=== PATIENT | female | born 1965 | race American Indian/Alaskan Native ===

== ENCOUNTER 2017-01-22 06:03 | Day surgery (SDC) | payer OTHER ==
[2016-05-22 16:22] VITALS: BMI 22.8
[2017-01-22] MEDS ORDERED: Bupivacaine 0.5% Inj(30mL) ONE (08:09)
[2017-01-22] MEDS ORDERED: Succinylcholine 200 mg/10 ml Inj IV ONE (09:25)
[2017-01-22] MEDS ORDERED: Midazolam 2 MG/2 ML VIAL ONE (09:25)
[2017-01-22] MEDS ORDERED: Propofol 10 mg/ml Inj (20 ML) ONE (09:25)
[2017-01-22] MEDS ORDERED: ePHEDrine 50 mg/ml Inj ONE (09:34)
[2017-01-22] MEDS ORDERED: Phenylephrine 10 mg/ml Inj ONE (09:34)
[2017-01-22] MEDS ORDERED: Neostigmine Methylsulfate 3mg/3ml Syringe IV ONE ×2 (10:08→10:27)
[2017-01-22] MEDS ORDERED: HYDROmorphone 0.5 mg/0.5 ml ISec IVP PRN (10:48)
--- NOTE | 2017-01-22 10:52 | PCM.SURG1 ---
Surgeon's Initial Post Op Note - Surgeon's Notes Surgeon: Dr. Louis Botany Professor: Dr. Conner PGY-2, Dr. Paula PGY-1 Type of Anesthesia: General Endo Anesthesia Administered By: Dr. Bach Pre-Operative Diagnosis: Ventral Hernia Operative Findings: See operative report Post-Operative Diagnosis: Same Operation Performed: Open ventral hernia repair Specimen/Specimens Removed: sac lipoma Estimated Blood Loss: EBL {In ML}: 5 Blood Products Given: N/A Drains Used: No Drains Post-Op Condition: Good Date of Surgery/Procedure: 01/22/17 Time of Surgery/Procedure: 10:52
[2017-01-22] MEDS ORDERED: Oxycodone/Acetaminophen 5/325 mg Tab PO PRN (10:54)
[2017-01-22] MEDS ORDERED: Lactated Ringer's 1,000 ML IV SCH (11:00)
[2017-01-22 11:14] VITALS: O2SAT 100
[2017-01-22 12:00] VITALS: RESP 18; TEMP 97.7
[2017-01-22 12:29] VITALS: BP 120/81; PULSE 78
--- NOTE | 2017-01-30 07:37 | OP ---
PROCEDURE DATE: 01/22/2017 PREOPERATIVE DIAGNOSIS: Ventral umbilical hernia. POSTOPERATIVE DIAGNOSIS: Ventral umbilical hernia. OPERATION PERFORMED: Excision of the hernia and repair. DESCRIPTION OF PROCEDURE: In the operating room, the patient was identified by name, number, procedu re, laterality, my ton, the consent. The area was a small periumbilical ventral-type hernia in the site of an old scar. This was dissected down to the skin. Once the timeout was successfully complet ed, the area was injected with Marcaine, and the dissection was taken down to the fascia. A very sma ll ventral hernia was identified. This was circumferentially dissected and pushed back. The incision was closed with mattress stitches of #1 Novafil. These were placed. The area was then palpated, and these were pulled up and tied serially. The wounds were injected with Marcaine, subcut icular stitches of Vicryl followed by 4-0 PDS subcuticular stitch. A light dressing was applied. Th e patient taken to recovery room in good condition after sponge count was declared correct. Barney Louis MD cc: [id number] TT: 01/29/2017 15:01:57 jn
== END 2017-01-22 12:45 | disposition home or self-care (01) ==
LOC: SDS 06:03
PROVIDERS: ATTEND Surgery
DX: K43.9 Ventral hernia without obstruction or gangrene (principal); I10 Essential (primary) hypertension; F41.9 Anxiety disorder, unspecified
CPT/HCPCS: 49560; 88302; J0330; J0690; J1100; J1170; J2001; J2250; J2370; J2405; J2704; J2710; J3010; J7040; J7120 ×2

== ENCOUNTER 2017-10-25 18:49 | Emergency (ER) | payer OTHER ==
[2017-10-25 19:00] VITALS: BP 137/65; PULSE 108; RESP 18; TEMP 99.4; O2SAT 98; BMI 23.4
--- NOTE | 2017-10-25 19:13 | ED PDOC ---
Arrival/HPI <Wilmer Menjivar - Last Filed: 10/25/17 20:45> - General Historian: Patient - History of Present Illness Time/Duration: Other (see hpi) Context: Home <More Escalera - Last Filed: 10/25/17 21:26> - General Chief Complaint: Flu-like Symptoms Time Seen by Provider: 10/25/17 19:09 - History of Present Illness Narrative History of Present Illness (Text): 10/25/17 19:12 A 52 year old female, whose past medical history includes Total abdominal hysterectomy and x3, presents to the emergency room complaining of nasal congestion x 2 days. Patient she developed body aches, sore throat and fever since this morning. Patient denies cp, wheezing, urinary symptoms, abdominal pain, dizziness, leg swelling, calf pain, recent travel, sick contact , or abnormal gait. Patient admits smoking cigarettes daily. (More Escalera) Past Medical History - Provider Review Nursing Documentation Reviewed: Yes - Infectious Disease Hx of Infectious Diseases: None - Tetanus Immunization Tetanus Immunization: Unknown - Reproductive Menopause: No - Past Medical History Past Medical History: No Previous - Cardiac Hx Pacemaker: No - Pulmonary Hx Respiratory Disorders: No - Neurological Hx Paralysis: No - HEENT Hx HEENT Disorder: No - Renal Hx Renal Disorder: No - Endocrine/Metabolic Hx Endocrine Disorders: No - Hematological/Oncological Hx Blood Transfusions: Yes (1980) Hx Blood Transfusion Reaction: No - Integumentary Hx Dermatological Disorder: No - Musculoskeletal/Rheumatological Hx Musculoskeletal Disorders: No - Gastrointestinal Hx Gastrointestinal Disorders: Yes Hx Constipation: Yes Other/Comment: unspecified stomach problem - Genitourinary/Gynecological Hx Genitourinary Disorders: Yes Hx Uterine Cancer: Yes (fibroid) - Psychiatric Hx Emotional Abuse: No Hx Physical Abuse: No Hx Substance Use: No - Past Surgical History Past Surgical History: No Previous - Surgical History Hx Section: Yes Hx Hysterectomy: Yes - Anesthesia Hx Anesthesia Reactions: No Hx Malignant Hyperthermia: No - Suicidal Assessment Feels Threatened In Home Enviroment: No <More Escalera - Last Filed: 10/25/17 21:26> Family/Social History - Physician Review Nursing Documentation Reviewed: Yes Family/Social History: Other (noncontributory) Smoking Status: Light Smoker < 10 Cigarettes Daily Hx Alcohol Use: Yes (SOCIAL) Frequency of alcohol use: Socially Hx Substance Use: No Hx Substance Use Treatment: No <More Escalera Melina - Last Filed: 10/25/17 21:26> Allergies/Home Meds <Wilmer Menjivar - Last Filed: 10/25/17 20:45> <More Escalera P - Last Filed: 10/25/17 21:26> Allergies/Adverse Reactions: Allergies Penicillins Allergy (Verified 10/25/17 19:00) RASH tomato Allergy (Verified 10/25/17 19:00) RASH Home Medications: Home Meds Medication Instructions Recorded Confirmed Lubiprostone [Amitiza] 1 tab PO BID 05/22/16 10/25/17 Acetaminophen/Diphenhydramine 1 tab PO HS 01/02/17 10/25/17 [Tylenol Pm Ex-Strength Caplet] Alprazolam [Xanax] 0.5 mg PO BID 01/02/17 10/25/17 Esomeprazole Magnesium [Nexium] 40 mg PO DAILY 01/02/17 10/25/17 oxyCODONE/Acetaminophen [Percocet 1 tab PO Q6H PRN 01/22/17 10/25/17 5/325 mg Tab] Review of Systems - Review of Systems Constitutional: absent: Fatigue, Weight Change, Fevers, Night Sweats Eyes: Normal ENT: Sore Throat, Rhinorrhea Respiratory: Normal. absent: SOB, Cough Cardiovascular: Normal. absent: Chest Pain, Palpitations Gastrointestinal: Normal. absent: Abdominal Pain, Nausea, Vomiting Genitourinary Female: Normal. absent: Dysuria, Frequency, Hematuria Musculoskeletal: Myalgias. absent: Back Pain, Neck Pain Skin: Normal. absent: Rash Neurological: Normal. absent: Headache, Dizziness, Focal Weakness, Gait Changes , Speech Changes, Facial Droop, Disequilibrium, Seizure Endocrine: Normal Hemo/Lymphatic: Normal Psychiatric: Normal <More Escalera P - Last Filed: 10/25/17 21:26> Physical Exam Temperature: Afebrile Blood Pressure: Normal Pulse: Tachycardic Respiratory Rate: Normal Appearance: Positive for: Well-Appearing, Non-Toxic, Comfortable Pain Distress: None Mental Status: Positive for: Alert and Oriented X 3 - Systems Exam Head: Present: Atraumatic, Normocephalic Pupils: Present: PERRL Extroacular Muscles: Present: EOMI Conjunctiva: Present: Normal Mouth: Present: Moist Mucous Membranes Neck: Present: Normal Range of Motion Respiratory/Chest: Present: Clear to Auscultation, Good Air Exchange. No: Respiratory Distress, Accessory Muscle Use, Wheezes, Rales, Retracting, Rhonchi , Tachypneic Cardiovascular: Present: Regular Rate and Rhythm, Normal S1, S2. No: Murmurs Abdomen: Present: Normal Bowel Sounds. No: Tenderness, Distention, Peritoneal Signs Back: Present: Normal Inspection. No: CVA Tenderness Upper Extremity: Present: Normal Inspection. No: Cyanosis, Edema Lower Extremity: Present: Normal Inspection. No: Edema Neurological: Present: GCS=15, CN II-XII Intact, Speech Normal, Motor Func Grossly Intact, Normal Sensory Function, Normal Cerebellar Funct Skin: Present: Warm, Dry, Normal Color. No: Rashes Psychiatric: Present: Alert, Oriented x 3, Normal Insight, Normal Concentration <More Escalera - Last Filed: 10/25/17 21:26> Vital Signs Temp Pulse Resp BP Pulse Ox 10/25/17 18:55 99.4 F 108 H 18 137/65 98 Medical Decision Making <Wilmer Menjivar - Last Filed: 10/25/17 20:45> Re-evaluation Time: 21:02 Reassessment Condition: Re-examined, Improved - Lab Interpretations I have reviewed the lab results: Yes Interpretation: No clinic. lab abnormalty <More Escalera - Last Filed: 10/25/17 21:26> ED Course and Treatment: 10/25/17 21:01 Patient is feeling better. She was recommended to f/u pmd in 1-2 days. Take medication as instructed. Return to emergency if symptoms worsen. Re-evaluation. Patient feels better. Discussed results and plan with patient who expresses understanding. All questions answered and there is agreement with the plan to discharge home with instructions. Patient stable for discharge. Return if symptoms persist or worsen. (More Escalera P) - Lab Interpretations Lab Results: Lab Results 10/25/17 19:30: Influenza Typ A,B (EIA) Negative for flu a/b - RAD Interpretation Radiology Orders: 10/25/17 19:26 CHEST TWO VIEWS (PA/LAT) [RAD] Stat - Medication Orders Current Medication Orders: Discontinued Medications Azithromycin (Zithromax) 500 mg PO STAT STA PRN Reason: Protocol Stop: 10/25/17 21:01 Promethazine HCl/Codeine (Phenergan/Codeine Oral Syrup) 10 ml PO STAT STA Stop: 10/25/17 21:01 - PA / CVIR TECH / Resident Statement / has reviewed & agrees with the documentation as recorded. / has examined the patient and agrees with the treatment plan. <Wilmer Menjivar - Last Filed: 10/25/17 20:45> Disposition/Present on Arrival <Wilmer Menjivar - Last Filed: 10/25/17 20:45> - Present on Arrival Any Indicators Present on Arrival: No History of DVT/PE: No History of Uncontrolled Diabetes: No Urinary Catheter: No History of Decub. Ulcer: No History Surgical Site Infection Following: None - Disposition Have Diagnosis and Disposition been Completed?: Yes Disposition Time: 21:02 Patient Plan: Discharge <More Escalera - Last Filed: 10/25/17 21:26> - Disposition Diagnosis: Acute bronchitis Disposition: HOME/ ROUTINE Patient Problems: Current Active Problems Problem Status Onset Acute bronchitis Acute Condition: STABLE Discharge Instructions (ExitCare): Acute Bronchitis (ED) Additional Instructions: Call private doctor for follow up visit in 1-2 days. Take medication as instructed. Return to emergency if symptoms worsen. Do not drive or operate machinery for at least 8 hours when you take cough medication. Prescriptions: Azithromycin [Z-David] 250 mg PO DAILY #4 tab Promethazine/Codeine [Codeine/Promethazine 10 MG/5 Ml-6.25 MG/5 Ml] 5 ml PO Q4H PRN #120 ml PRN Reason: Cough Referrals: Silver Mclean MD [Primary Care Provider] - Follow up with primary Forms: [employer] ([place]), WORK NOTE
[2017-10-25] MEDS ORDERED: Promethazine/Cod 6.25mg-10mg/5ml Syr UD PO STA (21:00)
--- NOTE | 2017-10-26 09:02 | RAD ---
HISTORY: COMPARISON: 12/25/2016 TECHNIQUE: Chest PA and lateral FINDINGS: LINES AND TUBES: None. LUNG AND PLEURA: The lungs are hyperinflated and there is peribronchial thickening with chronic changes in both lungs. No focal consolidation HEART AND MEDIASTINUM: The heart is not enlarged. The hilar and mediastinal contours are within normal limits. SKELETAL STRUCTURES: The bony structures are within normal limits for the patient's age. VISUALIZED UPPER ABDOMEN: Normal. OTHER FINDINGS: None. IMPRESSION: No active pulmonary disease. COPD.
== END 2017-10-25 22:15 | disposition home or self-care (01) ==
LOC: ED 18:49
DX: J20.9 Acute bronchitis, unspecified (principal); F17.210 Nicotine dependence, cigarettes, uncomplicated

== ENCOUNTER 2018-10-09 20:46 | Emergency (ER) | payer OTHER ==
[2018-10-09 21:29] VITALS: RESP 18; TEMP 98.2; BMI 25.6
--- NOTE | 2018-10-09 22:41 | ED PDOC ---
Arrival/HPI - General Chief Complaint: Dental Pain Time Seen by Provider: 10/09/18 20:46 Historian: Patient - History of Present Illness Narrative History of Present Illness (Text): 10/09/18 22:37 53 year old female with no significant past medical history, presents to the emergency department complaining of left bottom wisdom tooth removal pain. Patient reports she had her left bottom wisdom tooth removed and despite taking Tylenol and clindamycin, patient still is having pain. Patient also states she works here and since Thursday she's also been having a cough, runny nose, fever, and chills, but denies any chest pain, shortness of breath, nausea, vomiting, diarrhea, headache, dizziness, rash, or any other complaints. Time/Duration: Other (1-2 days) Symptom Onset: Gradual Symptom Course: Unchanged Activities at Onset: Light Context: Home Past Medical History - Provider Review Nursing Documentation Reviewed: Yes - Infectious Disease Hx of Infectious Diseases: None - Tetanus Immunization Tetanus Immunization: Unknown - Past Medical History Past Medical History: No Previous - Cardiac Hx Pacemaker: No - Pulmonary Hx Respiratory Disorders: No - Neurological Hx Paralysis: No - HEENT Hx HEENT Disorder: No - Renal Hx Renal Disorder: No - Endocrine/Metabolic Hx Endocrine Disorders: No - Hematological/Oncological Hx Blood Transfusions: Yes (1980) Hx Blood Transfusion Reaction: No - Integumentary Hx Dermatological Disorder: No - Musculoskeletal/Rheumatological Hx Musculoskeletal Disorders: No - Gastrointestinal Hx Gastrointestinal Disorders: Yes Hx Constipation: Yes Other/Comment: unspecified stomach problem - Genitourinary/Gynecological Hx Genitourinary Disorders: Yes Hx Uterine Cancer: Yes (fibroid) - Psychiatric Hx Emotional Abuse: No Hx Physical Abuse: No Hx Substance Use: No - Past Surgical History Past Surgical History: No Previous - Surgical History Hx Section: Yes Hx Hysterectomy: Yes - Anesthesia Hx Anesthesia Reactions: No Hx Malignant Hyperthermia: No - Suicidal Assessment Feels Threatened In Home Enviroment: No Family/Social History - Physician Review Nursing Documentation Reviewed: Yes Family/Social History: No Known Family HX Smoking Status: Light Smoker < 10 Cigarettes Daily Hx Alcohol Use: Yes (SOCIAL) Hx Substance Use: No Hx Substance Use Treatment: No Allergies/Home Meds Allergies/Adverse Reactions: Allergies Penicillins Allergy (Verified 10/25/17 19:00) RASH tomato Allergy (Verified 10/25/17 19:00) RASH Home Medications: Home Meds Medication Instructions Recorded Confirmed Lubiprostone [Amitiza] 1 tab PO BID 05/22/16 10/25/17 Acetaminophen/Diphenhydramine 1 tab PO HS 01/02/17 10/25/17 [Tylenol Pm Ex-Strength Caplet] Alprazolam [Xanax] 0.5 mg PO BID 01/02/17 10/25/17 Esomeprazole Magnesium [Nexium] 40 mg PO DAILY 01/02/17 10/25/17 oxyCODONE/Acetaminophen [Percocet 1 tab PO Q6H PRN 01/22/17 10/25/17 5/325 mg Tab] Review of Systems - Physician Review All systems were reviewed & negative as marked: Yes - Review of Systems Constitutional: Fevers, Other (Chills) ENT: Rhinorrhea, Other (left wisdom tooth removal pain) Respiratory: Cough. absent: SOB Cardiovascular: absent: Chest Pain Gastrointestinal: absent: Diarrhea, Nausea, Vomiting Skin: absent: Rash Neurological: absent: Headache, Dizziness Physical Exam Vital Signs Reviewed: Yes Vital Signs Temp Pulse Resp BP Pulse Ox 10/09/18 20:46 98.2 F 92 H 18 121/81 99 Temperature: Afebrile Blood Pressure: Normal Pulse: Regular Respiratory Rate: Normal Appearance: Positive for: Well-Appearing, Non-Toxic, Comfortable Pain Distress: None Mental Status: Positive for: Alert and Oriented X 3 - Systems Exam Head: Present: Atraumatic, Normocephalic, Swelling (Mild swelling to the left mandible) Pupils: Present: PERRL Extroacular Muscles: Present: EOMI Conjunctiva: Present: Normal Mouth: Present: Moist Mucous Membranes, Other (Mild tenderness to area of dental extraction. No swelling to the gums. ) Neck: Present: Normal Range of Motion Respiratory/Chest: Present: Clear to Auscultation, Good Air Exchange. No: Respiratory Distress, Accessory Muscle Use Cardiovascular: Present: Regular Rate and Rhythm, Normal S1, S2. No: Murmurs Neurological: Present: GCS=15, CN II-XII Intact, Speech Normal Skin: Present: Warm, Dry, Normal Color. No: Rashes Psychiatric: Present: Alert, Oriented x 3, Normal Insight, Normal Concentration Medical Decision Making ED Course and Treatment: 10/09/18 22:37 Impression: 53 year old female presents complaining left bottom wisdom tooth removal pain for the past 2 days and also complaining of cough, runny nose, fever, and chills that began yesterday. Plan: -- Chest X-ray -- Douneb, Ultram -- Reassess and disposition Progress Notes: Flu : (-) CXR : NAD On reevaluation, patient reports pain is improving. Diagnostic results discussed with the patient. On exam, patient remains awake alert and oriented 3 in no acute distress. Advised to follow up with primary care physician and dentist in 1-2 days without fail. Advised to take medication as prescribed. Return to the emergency room at any time for any new or worsening symptoms. Patient states she fully agrees with and understands discharge instructions. States that she agrees with the plan and disposition. Verbalized and repeated discharge instructions and plan. I have given the patient opportunity to ask any additional questions. - Lab Interpretations Lab Results: Lab Results 10/09/18 22:00: Influenza Typ A,B (EIA) Negative for flu a/b - RAD Interpretation Radiology Orders: 10/09/18 21:47 CHEST TWO VIEWS (PA/LAT) [RAD] Stat - Medication Orders Current Medication Orders: Discontinued Medications Tramadol HCl (Ultram) 50 mg PO STAT STA Stop: 10/09/18 21:48 Last Admin: 10/09/18 21:57 Dose: 50 mg ANDRES Pain Assessment Document 10/09/18 21:57 JOL (Rec: 10/09/18 21:57 JOL [facility] [id number]) Pain Reassessment Is this a pain reassessment? No Sleep Is patient sleeping during reassessment? No Presence of Pain Presence of Pain Yes Pain Scale Used Protocol: PSCALES Pain Scale Used Numeric Location Pain Location Body Site Face Description Intensity of Pain at present 6 - PA / DIRECTOR OF PLACEMENT / Resident Statement MD/ has reviewed & agrees with the documentation as recorded. - Scribe Statement The provider has reviewed the documentation as recorded by the Carla Messina Provider Scribe Attestation: All medical record entries made by the Tazibamol were at my direction and personally dictated by me. I have reviewed the chart and agree that the record accurately reflects my personal performance of the history, physical exam, medical decision making, and the department course for this patient. I have also personally directed, reviewed, and agree with the discharge instructions and disposition. Disposition/Present on Arrival - Present on Arrival Any Indicators Present on Arrival: No History of DVT/PE: No History of Uncontrolled Diabetes: No Urinary Catheter: No History of Decub. Ulcer: No History Surgical Site Infection Following: None - Disposition Have Diagnosis and Disposition been Completed?: Yes Diagnosis: Toothache, Acute bronchitis Disposition: HOME/ ROUTINE Disposition Time: 22:45 Patient Plan: Discharge Patient Problems: Current Active Problems Problem Status Onset Toothache Acute Acute bronchitis Acute Condition: STABLE Discharge Instructions (ExitCare): Acute Bronchitis, Adult (DC), Dental Pain (DC) Additional Instructions: Thank you for letting us take care of you today. You were treated for toothache, acute bronchitis. The emergency medical care you received today was directed at your acute symptoms. If you were prescribed any medication, please fill it and take as directed. It may take several days for your symptoms to resolve. Return to the Emergency Department if your symptoms worsen, do not improve, or if you have any other problems. Please contact your doctor and her dentist in 2 days for re-evaluation and follow up. Bring any paperwork you were given at discharge with you along with any medications you are taking to your follow up visit. Our treatment cannot replace ongoing medical care by a primary care provider (PCP) outside of the emergency department. Thank you for allowing the [facility] [employer] [facility] team to be part of your care today. If you had an X-Ray : A Radiologist will review the ED reading if any change in treatment is needed we will contact you. Prescriptions: Albuterol 0.083% [Albuterol Sulfate 3 Ml] 3 ml IH Q4 #100 neb Azithromycin [Z-David] 250 mg PO DAILY #6 tab Nebulizer [Aeroeclipse II] 1 each MC DAILY #1 each traMADol [Ultram] 50 mg PO TID PRN #12 tab PRN Reason: Pain, Moderate (4-7) Referrals: FAMILY PROVIDER,NO [Primary Care Provider] - Follow up with primary Forms: [employer] (Filipino), WORK NOTE
[2018-10-09] MEDS ORDERED: Albuterol-Ipratrop 3 mg / 0.5 (3 ml) UD IH STA (22:44)
[2018-10-09] MEDS ORDERED: Albuterol-Ipratrop 3 mg / 0.5 (3 ml) UD ONE (22:51)
[2018-10-09 23:41] VITALS: BP 123/74; PULSE 88; O2SAT 100
--- NOTE | 2018-10-10 09:58 | RAD ---
Date of service: 10/09/2018 HISTORY: cough COMPARISON: Chest radiograph dated 10/25/2017. TECHNIQUE: Chest PA and lateral FINDINGS: LUNGS: No active pulmonary disease. PLEURA: No significant pleural effusion identified. No pneumothorax apparent. CARDIOVASCULAR: Aortic atherosclerotic calcifications. Cardiomediastinal silhouette within normal limits. OSSEOUS STRUCTURES: Unchanged. VISUALIZED UPPER ABDOMEN: Normal. OTHER FINDINGS: None. IMPRESSION: No active disease.
== END 2018-10-09 23:05 | disposition home or self-care (01) ==
LOC: ED 20:46
DX: J20.9 Acute bronchitis, unspecified (principal); K08.89 Other specified disorders of teeth and supporting structures; F17.210 Nicotine dependence, cigarettes, uncomplicated

== ENCOUNTER 2019-03-11 20:19 | Emergency (ER) | payer OTHER ==
[2019-03-11 20:20] VITALS: BMI 25.6
[2019-03-11 20:24] VITALS: RESP 18
[2019-03-11 20:44] VITALS: TEMP 98
[2019-03-11] MEDS ORDERED: Sodium Chloride 0.9% 1,000 ML IV ONE (20:49)
[2019-03-11 21:19] LABS: BASO # 0.02 K/mm3 (0.0-2.0); BASO % 0.2 % (0.0-3.0); EOS # 0.1 (0.0-0.7); EOS % 1.2 % (1.5-5.0); HEMOGLOBIN 13.5 g/dL (12.0-16.0); LYMPH # 4.1 (1.2-3.4); LYMPH % 49.5 % (22.0-35.0); MEAN CELL VOLUME 99.5 fl (80.0-105.0); MEAN CORPUSCULAR HEMOGLOBIN 33.1 pg (25.0-35.0); MEAN CORPUSCULAR HGB CONC 33.3 g/dl (31.0-37.0); MEAN PLATELET VOLUME 9.4 fl (7.0-11.0); MONO # 0.5 (0.1-0.6); MONO % 6.5 % (1.0-6.0); RBC 4.08 10^6/uL (3.5-6.1); RED CELL DISTRIBUTION WIDTH 13.3 % (11.5-14.5); WHITE BLOOD COUNT 8.3 10^3/uL (4.5-11.0)
[2019-03-11 21:38] LABS: ALB/GLOB RATIO 1.4 (1.1-1.8); ALBUMIN 4.6 g/dL (3.0-4.8); ALT/SGPT 11 U/L (7-56); AST/SGOT 26 U/L (14-36); BLOOD UREA NITROGEN 10 mg/dL (7-21); CALCIUM 9.9 mg/dL (8.4-10.5); GFR NON-AFRICAN AMERICAN > 60
[2019-03-11 21:39] LABS: TROPONIN I < 0.01 ng/mL
[2019-03-11 22:36] VITALS: BP 131/79; PULSE 98; O2SAT 98
--- NOTE | 2019-03-11 22:36 | ED PDOC ---
Arrival/HPI - General Chief Complaint: Shortness Of Breath Time Seen by Provider: 03/11/19 20:23 Historian: Patient - History of Present Illness Narrative History of Present Illness (Text): 03/11/19 20:20 53 year old female with no significant past medial history, presents to the emergency department complaining of feeling nauseous and anxious associated with dry cough for the past few days. Patient denies any fever, chills, chest pain, shortness of breath, vomiting, diarrhea, urinary symptoms, back pain, neck pain, headache, dizziness, or any other complaints. PMD: Dr. Mclean Time/Duration: Other (couple days) Symptom Onset: Gradual Symptom Course: Unchanged Activities at Onset: Light Context: Home Past Medical History - Provider Review Nursing Documentation Reviewed: Yes - Infectious Disease Hx of Infectious Diseases: None - Tetanus Immunization Tetanus Immunization: Unknown - Past Medical History Past Medical History: No Previous - Cardiac Hx Pacemaker: No - Pulmonary Hx Respiratory Disorders: No - Neurological Hx Paralysis: No - HEENT Hx HEENT Disorder: No - Renal Hx Renal Disorder: No - Endocrine/Metabolic Hx Endocrine Disorders: No - Hematological/Oncological Hx Blood Transfusions: Yes (1980) Hx Blood Transfusion Reaction: No - Integumentary Hx Dermatological Disorder: No - Musculoskeletal/Rheumatological Hx Musculoskeletal Disorders: No - Gastrointestinal Hx Gastrointestinal Disorders: Yes Hx Constipation: Yes Other/Comment: unspecified stomach problem - Genitourinary/Gynecological Hx Genitourinary Disorders: Yes Hx Uterine Cancer: Yes (fibroid) - Psychiatric Hx Emotional Abuse: No Hx Physical Abuse: No Hx Substance Use: No - Past Surgical History Past Surgical History: No Previous - Surgical History Hx Section: Yes Hx Hysterectomy: Yes - Anesthesia Hx Anesthesia Reactions: No Hx Malignant Hyperthermia: No - Suicidal Assessment Feels Threatened In Home Enviroment: No Family/Social History - Physician Review Nursing Documentation Reviewed: Yes Family/Social History: No Known Family HX Smoking Status: Light Smoker < 10 Cigarettes Daily Hx Alcohol Use: Yes (SOCIAL) Hx Substance Use: No Hx Substance Use Treatment: No Allergies/Home Meds Allergies/Adverse Reactions: Allergies Penicillins Allergy (Verified 03/11/19 20:23) RASH tomato Allergy (Verified 03/11/19 20:23) RASH Home Medications: Home Meds Medication Instructions Recorded Confirmed Lubiprostone [Amitiza] 1 tab PO BID 05/22/16 03/11/19 Acetaminophen/Diphenhydramine 1 tab PO HS 01/02/17 03/11/19 [Tylenol Pm Ex-Strength Caplet] Alprazolam [Xanax] 0.5 mg PO BID 01/02/17 03/11/19 Esomeprazole Magnesium [Nexium] 40 mg PO DAILY 01/02/17 03/11/19 oxyCODONE/Acetaminophen [Percocet 1 tab PO Q6H PRN 01/22/17 03/11/19 5/325 mg Tab] Review of Systems - Physician Review All systems were reviewed & negative as marked: Yes - Review of Systems Constitutional: absent: Fevers, Other (chills) Respiratory: Cough. absent: SOB Cardiovascular: absent: Chest Pain Gastrointestinal: Nausea. absent: Diarrhea, Vomiting Genitourinary Female: absent: Dysuria, Frequency, Hematuria Musculoskeletal: absent: Back Pain, Neck Pain Neurological: absent: Headache, Dizziness Psychiatric: Anxiety Physical Exam Vital Signs Reviewed: Yes Vital Signs Temp Pulse Resp BP Pulse Ox 03/11/19 20:23 98.0 F 105 H 18 141/90 100 Temperature: Afebrile Blood Pressure: Normal Pulse: Tachycardic Respiratory Rate: Normal Appearance: Positive for: Well-Appearing, Non-Toxic, Comfortable Pain Distress: None Mental Status: Positive for: Alert and Oriented X 3 - Systems Exam Head: Present: Atraumatic, Normocephalic Pupils: Present: PERRL Extroacular Muscles: Present: EOMI Conjunctiva: Present: Normal Mouth: Present: Moist Mucous Membranes Neck: Present: Normal Range of Motion Respiratory/Chest: Present: Clear to Auscultation, Good Air Exchange. No: Respiratory Distress, Accessory Muscle Use Cardiovascular: Present: Regular Rate and Rhythm, Normal S1, S2. No: Murmurs Abdomen: No: Tenderness, Distention, Peritoneal Signs Back: Present: Normal Inspection Upper Extremity: Present: Normal Inspection. No: Cyanosis, Edema Lower Extremity: Present: Normal Inspection. No: Edema Neurological: Present: GCS=15, Speech Normal Skin: Present: Warm, Dry, Normal Color. No: Rashes Psychiatric: Present: Alert, Oriented x 3, Normal Insight, Normal Concentration Medical Decision Making ED Course and Treatment: 03/11/19 20:30 Impression: 53 year old female presents complaining of feeling nauseous and anxious associated with cough for the past couple of days. Plan: -- EKG -- Labs -- Chest X-ray -- IV Fluids, Zofran Inj -- Reassess and disposition Prior Visits: Notes and results from previous visits were reviewed. Progress Notes: EKG shows sinus at 98 BPM. Interpreted by me. CXR Impression: As read by me, No active disease. 03/11/19 22:30 On re-evaluation, patient is in no acute distress. I have discussed the results and plan with the patient, who expresses understanding. Patient in agreement with plan to be discharged home. Patient is stable for discharge. Patient was instructed to follow up with physician or return if symptoms worsen or new concerning symptoms arise. - Lab Interpretations Lab Results: Troponin I < 0.01 ng/mL 03/11/19 21:10 Total Bilirubin 0.3 mg/dL (0.2-1.3) 03/11/19 21:10 AST 26 U/L (14-36) 03/11/19 21:10 ALT 11 U/L (7-56) 03/11/19 21:10 Alkaline Phosphatase 82 U/L (38-126) 03/11/19 21:10 Total Protein 7.8 g/dL (5.8-8.3) 03/11/19 21:10 Albumin 4.6 g/dL (3.0-4.8) 03/11/19 21:10 Globulin 3.2 gm/dL 03/11/19 21:10 Albumin/Globulin Ratio 1.4 (1.1-1.8) 03/11/19 21:10 I have reviewed the lab results: Yes - RAD Interpretation Radiology Orders: 03/11/19 20:49 CHEST PORTABLE [RAD] Stat Bank Note Designer: ED Physician - EKG Interpretation Interpreted by ED Physician: Yes Type: 12 lead EKG - Medication Orders Current Medication Orders: Sodium Chloride (Sodium Chloride 0.9%) 1,000 mls @ 250 mls/hr IV .Q4H ONE Stop: 03/12/19 00:48 Last Admin: 03/11/19 21:09 Dose: 250 mls/hr eMAR Start Stop Document 03/11/19 21:09 SS (Rec: 03/11/19 21:09 SS [id number]) Intravenous Solution Start Date 03/11/19 Start Time 21:09 Discontinued Medications Ondansetron HCl (Zofran Inj) 4 mg IVP STAT STA Stop: 03/11/19 20:50 Last Admin: 03/11/19 21:09 Dose: 4 mg IVP Administration Document 03/11/19 21:09 SS (Rec: 03/11/19 21:09 SS [id number]) Charges for Administration # of IVP Administrations 1 - Scribe Statement The provider has reviewed the documentation as recorded by the Carla Messina Provider Scribe Attestation: All medical record entries made by the Scribe were at my direction and personally dictated by me. I have reviewed the chart and agree that the record accurately reflects my personal performance of the history, physical exam, medical decision making, and the department course for this patient. I have also personally directed, reviewed, and agree with the discharge instructions and disposition. Disposition/Present on Arrival - Present on Arrival Any Indicators Present on Arrival: No History of DVT/PE: No History of Uncontrolled Diabetes: No Urinary Catheter: No History of Decub. Ulcer: No History Surgical Site Infection Following: None - Disposition Have Diagnosis and Disposition been Completed?: Yes Diagnosis: Gastritis Disposition: HOME/ ROUTINE Disposition Time: 21:35 Condition: GOOD Discharge Instructions (ExitCare): Gastritis (DC) Additional Instructions: TRACEY PEREA, thank you for letting us take care of you today. The emergency medical care you received today was directed at your acute symptoms. If you were prescribed any medication, please fill it and take as directed. It may take several days for your symptoms to resolve. Return to the Emergency Department if your symptoms worsen, do not improve, or if you have any other problems. Please contact your doctor or call one of the physicians/clinics you have been referred to that are listed on the Patient Visit Information form that is included in your discharge packet. Bring any paperwork you were given at discharge with you along with any medications you are taking to your follow up visit. Our treatment cannot replace ongoing medical care by a primary care provider outside of the emergency department. Thank you for allowing the [facility] team to be part of your care today. Follow up with your primary care doctor in 2-3 days for re-evaluation and further management. Prescriptions: Famotidine [Pepcid] 20 mg PO BID #14 tab Ondansetron ODT [Zofran ODT] 4 mg PO Q8 PRN #15 odt PRN Reason: Nausea/Vomiting Referrals: Silver Mclean MD [Primary Care Provider] - Follow up with primary Forms: [employer] ([place]), WORK NOTE
--- NOTE | 2019-03-12 10:43 | RAD ---
Date of service: 03/11/2019 HISTORY: r/o infiltrate COMPARISON: Chest radiograph dated 10/09/2018. TECHNIQUE: 1 view obtained. FINDINGS: LUNGS: No active pulmonary disease. PLEURA: No significant pleural effusion identified, no pneumothorax apparent. CARDIOVASCULAR: Aortic atherosclerotic calcifications. Cardiomediastinal silhouette within normal limits. OSSEOUS STRUCTURES: Unchanged. VISUALIZED UPPER ABDOMEN: Normal. OTHER FINDINGS: None. IMPRESSION: No active disease.
--- NOTE | 2019-03-12 19:10 | CARD ---
APPROVED REPORT Date of service: 03/11/2019 EKG Measurement Heart [id number] <Conclusion> Normal sinus rhythm Nonspecific T wave abnormality Abnormal ECG
== END 2019-03-11 22:36 | disposition home or self-care (01) ==
LOC: ED 20:19
DX: K29.70 Gastritis, unspecified, without bleeding (principal); F17.210 Nicotine dependence, cigarettes, uncomplicated
CPT/HCPCS: 71045; 80053; 82550; 83615; 83735; 84484; 85025; 93005; 96374; 99284; J2405; J7030